=== PATIENT | female | born 1985 | race Caucasian/White ===

== ENCOUNTER → 2017-05-03 | Outpatient (CLI) | payer OTHER | LOC: COL.RAD 13:18 | DX: N92.6 Irregular menstruation, unspecified (principal); D25.9 Leiomyoma of uterus, unspecified; Z86.018 Personal history of other benign neoplasm ==

== ENCOUNTER → 2018-02-10 | Outpatient (CLI) | payer OTHER | LOC: COL.VAS 08:57 | DX: R60.0 Localized edema (principal) ==

== ENCOUNTER → 2018-08-04 | Outpatient (CLI) | payer OTHER | LOC: COL.RAD 09:42 | DX: R10.11 Right upper quadrant pain (principal); Z90.49 Acquired absence of other specified parts of digestive tract ==